=== PATIENT | female | born 1985 | race Caucasian/White ===

== ENCOUNTER 2019-10-27 11:30 | Outpatient (RCR) | payer SELFPAY | END 2019-11-24 | disposition home or self-care (01) | LOC: WCC 11:30 | DX: T21.35XA Burn of third degree of buttock, initial encounter (principal); T25.222A Burn of second degree of left foot, initial encounter; L98.492 Non-pressure chronic ulcer of skin of other sites with fat layer exposed; L97.522 Non-pressure chronic ulcer of other part of left foot with fat layer exposed; X58.XXXA Exposure to other specified factors, initial encounter; Y92.9 Unspecified place or not applicable | CPT/HCPCS: G0277 ×5 ==

== ENCOUNTER 2019-10-27 11:58 | Outpatient (RCR) | payer BC ==
[~2019-10-27] VITALS: Ht 160 cm; Wt 49.9 kg
[2019-11-06] MEDS ORDERED: Lidocaine 1% MPF 10mg/ml 5ml INJ ONE (17:00)
== END 2019-11-24 | disposition home or self-care (01) ==
LOC: WCC 11:58
DX: T21.35XA Burn of third degree of buttock, initial encounter (principal); T25.222A Burn of second degree of left foot, initial encounter; L98.492 Non-pressure chronic ulcer of skin of other sites with fat layer exposed; L97.522 Non-pressure chronic ulcer of other part of left foot with fat layer exposed; X58.XXXA Exposure to other specified factors, initial encounter; Y92.9 Unspecified place or not applicable; Y99.8 Other external cause status; G82.20 Paraplegia, unspecified
CPT/HCPCS: 11042; 11045; 15271; 15272; Q4103

== ENCOUNTER 2019-12-08 12:07 | Outpatient (RCR) | payer BC | END 2019-12-24 | disposition home or self-care (01) | LOC: WCC 12:07 | DX: T21.35XA Burn of third degree of buttock, initial encounter (principal); T25.222A Burn of second degree of left foot, initial encounter; L98.492 Non-pressure chronic ulcer of skin of other sites with fat layer exposed; L97.522 Non-pressure chronic ulcer of other part of left foot with fat layer exposed; G82.20 Paraplegia, unspecified; X58.XXXA Exposure to other specified factors, initial encounter; Y92.9 Unspecified place or not applicable | CPT/HCPCS: 11042; 15271; Q4103 ==

== ENCOUNTER 2019-12-29 12:05 | Outpatient (RCR) | payer BC | END 2020-01-24 | disposition home or self-care (01) | LOC: WCC 12:05 | DX: T21.35XA Burn of third degree of buttock, initial encounter (principal); T25.222A Burn of second degree of left foot, initial encounter; L98.492 Non-pressure chronic ulcer of skin of other sites with fat layer exposed; L97.522 Non-pressure chronic ulcer of other part of left foot with fat layer exposed; X58.XXXA Exposure to other specified factors, initial encounter; Y92.9 Unspecified place or not applicable; G82.20 Paraplegia, unspecified | CPT/HCPCS: 11042 ==

== ENCOUNTER 2020-01-26 08:51 | Outpatient (RCR) | payer BC | END 2020-02-23 | disposition home or self-care (01) | LOC: WCC 08:51 | DX: G82.21 Paraplegia, complete (principal); R22.42 Localized swelling, mass and lump, left lower limb | CPT/HCPCS: G0463 ×2 ==